=== PATIENT | male | born 1990 | race Caucasian/White ===

== ENCOUNTER 2023-05-14 01:18 | Emergency (ER) | payer OTHER, SELFPAY ==
[2023-05-14 01:23] VITALS: BP 165/77; BMI 26.8
--- NOTE | 2023-05-14 02:07 | ED.GENMED ---
History of Present Illness
General
Chief Complaint: Alcohol Problem
Source: patient
Exam Limitations: none
Time Seen by Provider: 05/14/23 01:53
Travel History
Have you had any contact with someone who has COVID-19?: No
Do you have any symptoms of coronavirus? Fever > 100 degrees, chills, cough, shortness of breath, sore throat, loss of taste or smell, muscle aches, or headache?: No
History of Present Illness
History of Present Illness:
This is a 32 year old male that comes in by ambulance with c/o alcohol abuse. Told that patient was at friends house and they were drinking. States that the friends said that he was seeing things and putting on Other peoples clothing. States that he
was trying to pass his testing as [facility] and was unable to pass. States that he was sober for 120 days and then he started to drink again. Nursing spoke with patients dad and states that he has been
drinking and has been in and out of rehab. States that he has never drank that he needed to be seen in the hospital. Dad is coming to pick patient up. Patient Denies any fever, chills, chest pain, SOB, abd pain, nausea, vomiting, diarrhea, headache,
dizziness.
Past History
Past History
ED Past Medical History: HTN
ED Past Surgical History: None
Social History
Tobacco: Non-smoker
Alcohol: Occasional
Personal: Single
Living: with family
Review of Systems
Review of Systems
All Other Systems: ROS reviewed and negative except as documented in HPI and ROS
Constitutional: Reports no symptoms; Denies fever or chills
EENT: Reports no symptoms
Respiratory: Reports no symptoms; Denies cough or trouble breathing
Cardiac: Reports no symptoms; Denies chest pain
ABD/GI: Reports no symptoms; Denies abdominal pain, nausea, vomiting or diarrhea
: Reports no symptoms
Musculoskeletal: Reports no symptoms
Skin: Reports no symptoms
Neurological: Reports no symptoms; Denies dizzy or headache
Psychiatric: Reports no symptoms
Phy Exam
General Physical Exam
General Presentation: well appearing
General age: appears stated age
General Skin: warm and dry
General Habitus: normal
General Mental: appears intoxicated and tearful
General Hydration: appears well hydrated
ENT Exam
ENT Exam: TM's normal, pharynx normal and neck supple
Eye Exam
Eye Exam: EOMI
Cardiovascular Exam
Cardiovascular Exam: regular rate/rhythm, no edema, no murmur and normal peripheral pulses
Pulmonary Exam
Pulmonary Exam: lungs clear, no respiratory distress, no rales, chest non tender, no crackles, no rhonchi, no wheezing and no cough
Gastrointestinal Exam
Gastrointestinal Exam: normal bowel sounds, non tender, soft, no organomegaly, no pulsatile mass and non distended
Musculoskeletal Exam
Musculoskeletal Exam: full ROM and no edema
Skin Exam
Skin Exam: normal color, warm/dry, no rash and no petechia
Psychiatric Exam
Psychiatric Exam: depressed and other (Tearful, Intoxicated, )
Scores
Withdrawal Assessment of Alcohol
Withdrawal Assessment Completed?: Not applicable
Course
Orders/Labs/Results
Orders:
05/14/23 02:06
05/14/23 02:06
Vital Signs
Initial and Last Documented VS:
Initial Vital Signs
Temp Pulse Resp BP Pulse Ox
99.0 F 128 18 165/77 98
05/14/23 01:23 05/14/23 01:23 05/14/23 01:23 05/14/23 01:23 05/14/23 01:23
Last Documented Vital Signs
Temp Pulse Resp BP Pulse Ox
99.0 F 128 18 165/77 98
05/14/23 01:23 05/14/23 01:23 05/14/23 01:23 05/14/23 01:23 05/14/23 01:23
MDM/Problems Addressed
Differential Diagnosis Includes:
Alcohol abuse, Intoxication. Depression
MDM/Problems Addressed:
This is a 32 year old male that is brought in by ambulance. Patient was with friends and they called the ambulance as they said patient started to see thinks and was putting on other peoples clothing.
Patient is very tearful but cooperative and want to leave. Patient has been offered to speak with Crisis but has refused. Patient's dad is coming to get patient.
Chronic conditions affecting care:
NA
Acute Exacerbation and/or Progression of Chronic Illness: Other (History of alcohol use)
*Pulse Oximetry
Patient hypoxic: no
*EKG
Interpreted by ED Provider?: NA
Rate: EKG- N/A
*Dietetic Technician Interpretation
Rate: Dietetic Technician- N/A
*Critical Care Note
Total Time (30-74mins, 75-104mins- exclusive of procedures): Not Applicable
ED Attending Note
-
Portions of this chart may have been created with voice recognition software.� Occasional wrong word or��sound alike� substitutions may have occurred due to the inherent limitations of voice recognition software.
Discharge Plan
Departure
Patient Disposition: Home (Routine Discharge)
Date of Disposition: 05/14/23
Time of Disposition: 02:22
Patient with high blood pressure during this ER visit?: Yes
Condition: Good
Covid-19: Not Applicable
Discharge Problem:
Alcohol intoxication
Instructions: Alcohol Use Disorder (DC), BLOOD PRESSURE
Prescriptions:
No Action
No Current Medications
0
Referrals:
UNKNOWN - PT DOES,NOT KNOW [Family Provider] -
Activity Restrictions/Additional Instructions:
As discussed, you need to follow up with someone about your alcohol use. Please increase your water intake to 8-8oz glasses daily. Follow up with the family doctor for recheck. IF YOU HAVE ANY THOUGHTS OF HURTING YOURSELF OR YOU HAVE ANY OTHER
CONCERNS PLEASE RETURN TO THE EMERGENCY ROOM.
Interventions
Interventions:
*Risk Screen - Suicide Last Done: 05/14/23 01:23
*General Assessment Last Done: 05/14/23 01:23
*Neglect/Abuse Screening Last Done: 05/14/23 01:23
*ED COVID-19 Vaccine History Last Done: 05/14/23 01:23
--- NOTE | 2023-05-14 02:32 | EDRN ---
Patient called his dad shortly after arrival, dad reports that he will come get him however lives in [place], I spoke with dad after and dad did verify with me that he would come get him, patient has tried to leave the room several times, states
he needs to find his car, informed him that his car is not here and he can't drive he has been drinking, patient states he will walk home to [place], talked with patient about the distance and how it isn't safe to walk home this intoxicated at 2am
and the cold weather, security was called and outside of room, have spoke with dad 3 times, dad is on the way and will be taking him home. Dad aware we are keeping patient safe and he has been calm and redirected into room, Security will remain
outside room until dad gets here to pick patient up.
--- NOTE | 2023-05-14 03:39 | EDRN ---
Patient has remained calm and has been able to ambulate around room without difficulty, dad showed up and is ok taking him home, offered patient help and resources again, patient did not want any help. Patient ambulatory to the car with dad, no
further complaints.
== END 2023-05-14 03:49 | disposition home or self-care (01) ==
LOC: EMR 01:18
PROVIDERS: EMERGENCY PHYSICIAN Emergency Medicine
DX: F10.129 Alcohol abuse with intoxication, unspecified (principal); R03.0 Elevated blood-pressure reading, without diagnosis of hypertension
CPT/HCPCS: 99281